=== PATIENT | male | born 1990 | race Caucasian/White ===

== ENCOUNTER 2023-02-13 21:37 | Emergency (ER) | payer BC ==
[~2023-02-13] VITALS: Ht 188 cm; Wt 90.7 kg
[2023-02-13 22:08] VITALS: BP_SYST 117; PULSE 88; RESP 18; TEMP 98.3; O2SAT 98
[2023-02-13] MEDS ORDERED: L.RH1CAP PO (23:34)
[2023-02-13] MEDS ORDERED: PHEDM120 PO (23:34)
[2023-02-13] MEDS ORDERED: LOPE2CAP PO (23:34)
[2023-02-13] MEDS ORDERED: ACET325T PO (23:35)
[2023-02-14 00:24] VITALS: BP_SYST 120; PULSE 85; RESP 17; TEMP 98.9; O2SAT 99
[2023-02-14 00:54] LABS: INFLUENZA TYPE A Negative (NEGATIVE); INFLUENZA TYPE B NEGATIVE (NEGATIVE)
== END 2023-02-14 00:32 | disposition home or self-care (01) ==
LOC: SED 21:37
DX: J02.9 Acute pharyngitis, unspecified (principal); R05.9 Cough, unspecified; R10.84 Generalized abdominal pain; R19.7 Diarrhea, unspecified; Z79.899 Other long term (current) drug therapy; Z20.822 Contact with and (suspected) exposure to COVID-19
CPT/HCPCS: 36415; 99283